=== PATIENT | female | born 1950 | race Caucasian/White ===

== ENCOUNTER 2018-08-12 05:44 | Day surgery (SDC) | payer OTHER ==
[2018-08-12] MEDS ORDERED: PROPOFOL 200 MG/20 ML VIAL IV ONE (07:00)
[2018-08-12] MEDS ORDERED: LACTATED RINGERS 1,000 ML ONE (07:32)
[2018-08-12 09:57] VITALS: BP 155/81; TEMP 98.1; O2SAT 96
--- NOTE | 2018-08-12 10:24 | OP ---
DATE OF PROCEDURE: 08/12/18 PREPROCEDURE DIAGNOSIS: 1. Average risk screening colonoscopy. 2. Last colonoscopy 10 years ago. POSTPROCEDURE DIAGNOSIS: 1. Colonic polyps. 2. Internal hemorrhoids. PROCEDURE: 1. Colonoscopy with snare polypectomy. SURGEON: Yasmany Kuhn MD. SEDATION: Monitored anesthesia care. ESTIMATED BLOOD LOSS: Less than 5 mL. PROCEDURE: Informed consent was obtained prior to sedation. The preprocedure cardiopulmonary assessment was satisfactory. The patient was brought to the Endoscopy Suite and placed in the left lateral decubitus position. The patient was then sedated by the anesthesia team. Digital rectal and perianal exams were normal. The tip of the Olympus colonoscope was inserted into the rectum and advanced under direct visualization to the cecum as identified by the presence of the appendiceal orifice and ileocecal valve. Preparation of the colon was good. The endoscope was slowly withdrawn. In the ascending colon, there was a 3 mm flat polyp. This was resected with cold biopsy forceps and retrieved for pathology. In the distal ascending colon, there was a 25 mm sessile polyp. This was nonamenable to resection at this facility. The endoscopy continued to be withdrawn. In the rectum, there was a 6 mm sessile polyp. This was resected with cold snare polypectomy and retrieved for pathology. A retroflexed view of the anal verge showed small, non-bleeding internal hemorrhoids. The endoscope was then withdrawn from the patient and the procedure terminated. RECOMMENDATION: 1. Discharge the patient home with escort. 2. Resume regular diet. 3. Continue present medications. 4. The patient will require repeat colonoscopy in one month's time at [facility] for endoscopic mucosal resection. #[id number] [facility]
== END 2018-08-12 09:52 | disposition home or self-care (01) ==
LOC: AMB 05:44
PROVIDERS: ATTEND Internal Medicine Gastroenterology
DX: Z12.11 Encounter for screening for malignant neoplasm of colon (principal); D12.2 Benign neoplasm of ascending colon; K62.1 Rectal polyp; K64.8 Other hemorrhoids; I10 Essential (primary) hypertension; B18.2 Chronic viral hepatitis C; Z79.899 Other long term (current) drug therapy
CPT/HCPCS: 00812; 45385; J3490; J7120